=== PATIENT | male | born 1970 | race African-American/Black ===

== ENCOUNTER 2016-09-25 20:22 | Emergency (ER) | payer MEDICAID, MEDICARE ==
[~2016-09-25] VITALS: Ht 170.2 cm; Wt 69.0 kg
[2016-09-25] MEDS: SODIUM CHLORIDE 0.9% 1,000 ML IV ONE ×2 (01:30→23:15)
[~2016-09-25 20:22] MED LIST: IOHEXOL-350 100 ML BOTTLE ONE; SODIUM CHLORIDE 0.9% 10ML VIAL ONE
[2016-09-25 22:31] LABS: BASOPHILS % 1.3 % (0.0-2.0); EOSINOPHILS % 2.8 % (0.0-5.0); HEMATOCRIT. 35.2 % (42.0-52.0); HEMOGLOBIN. 11.8 g/dL (14.0-18.0); LYMPHOCYTES % 41.8 % (20.0-50.0); MEAN CORPUSCULAR HEMOGLOBIN 32.1 pg (28.0-32.0); MEAN CORPUSCULAR HGB CONC 33.4 g/dL (31.0-37.0); MEAN CORPUSCULAR VOLUME 95.9 fL (80.0-94.0); MEAN PLATELET VOLUME 7.3 fl (7.4-10.4); MONOCYTES % 8.7 % (2.0-8.0); NEUTROPHILS % 45.4 % (40.0-76.0); PLATELET 380 x1000/uL (130-400); RED BLOOD CELL COUNT 3.67 mill/uL (4.7-6.1); RED CELL DISTRIBUTION WIDTH 16.7 % (11.6-14.6)
[2016-09-25 22:41] LABS: D-DIMER 1.87 mg/L FEU (<0.50); INR 1.1; PARTIAL THROMBOPLASTIN TIME 27.3 sec (24.0-34.0)
[2016-09-25 22:45] LABS: ALANINE AMINOTRANSFERASE 91 IU/L (13-61); ALBUMIN 3.8 g/dL (3.4-5.0); ANION GAP 11; CALCIUM 8.1 mg/dL (8.5-10.1); CARBON DIOXIDE 26 mEq/L (21-32); CHLORIDE 111 mEq/L (98-107); ETHANOL BLOOD 299 mg/dL; INDEX HEMOLYSI 1 (1-3); INDEX ICTERIC 1 (1-4); INDEX LIPEMIC 1 (1-3); NT PRO B-TYPE NATRIURETIC PEP 42 pg/mL (5-125); UREA NITROGEN BLOOD 16 mg/dL (7-21); eGFR > 60 mL/min (>60)
[2016-09-25 22:46] LABS: TROPONIN I < 0.02 ng/mL (0.00-0.04)
[2016-09-25] MEDS: MORPHINE SULFATE 4 MG/ML CPJ (NOT FOR IM USE) IV STA (23:15)
[2016-09-25] MEDS: ONDANSETRON HCL 4MG/2ML VIAL IV STA (23:15)
[2016-09-25] MEDS: NITROGLYCERIN OINT 1GM/INCH UDPKT TD ONE (23:15)
[2016-09-25] MEDS: ASPIRIN 81MG TABLET PO ONE (23:15)
[2016-09-25] MEDS ORDERED: LIDOCAINE 5% PATCH TOP SCH (23:15)
[2016-09-26 04:31] LABS: CLARITY URINE CLEAR (CLEAR); COLOR URINE YELLOW (YELLOW); GLUCOSE URINE NEGATIVE (NEGATIVE); KETONES URINE NEGATIVE (NEGATIVE); LEUKOCYTE ESTERASE URINE NEGATIVE (NEGATIVE); NITRITE URINE NEGATIVE (NEGATIVE); OCCULT BLOOD URINE NEGATIVE (NEGATIVE); PROTEIN URINE NEGATIVE (NEGATIVE); SPECIFIC GRAVITY URINE 1.017 (1.005-1.030); UROBILINOGEN URINE 0.2 E.U./dL (0.2-1.0)
[2016-09-26 04:47] LABS: *AMPHETAMINES SCREEN URINE NEGATIVE (NEGATIVE); *BARBITURATES SCREEN URINE NEGATIVE (NEGATIVE); *BENZODIAZEPINES SCREEN URINE NEGATIVE (NEGATIVE); *COCAINE SCREEN URINE NEGATIVE (NEGATIVE); CANNABINOID URINE SCREEN NEGATIVE (NEGATIVE); ECSTASY MDMA SCREEN URINE NEGATIVE (NEGATIVE); METHADONE URINE SCREEN NEGATIVE (NEGATIVE); OPIATES URINE SCREEN PRESUMTIVE POSITIVE (NEGATIVE); PHENCYCLIDINE URINE SCREEN NEGATIVE (NEGATIVE)
[2016-09-26 08:24] VITALS: BP 116/70
== END 2016-09-26 08:26 | disposition home or self-care (01) ==
LOC: ER 20:30
DX: R07.81 Pleurodynia (principal); F10.129 Alcohol abuse with intoxication, unspecified; R74.0 Nonspecific elevation of levels of transaminase and lactic acid dehydrogenase [LDH]; D50.9 Iron deficiency anemia, unspecified; R79.1 Abnormal coagulation profile
CPT/HCPCS: 36415; 71010; 71275; 80053; 80305; 81003; 83880; 84484; 85025; 85379; 85610; 85730; 93005; 96361; 96374; 96375; 99285; A4216; G0482; J2270; J2405; Q9967; Z7610; J7030